=== PATIENT | female | born 1995 | race African-American/Black ===

== ENCOUNTER 2021-08-28 09:29 | Inpatient (IN) | payer SELFPAY ==
[2021-08-28] MEDS ORDERED: NA CHLORIDE 0.9% 1,000 ML ONE (12:19)
[2021-08-28 13:11] LABS: Absolute Lymphocytes (CBC) 1.6 K/uL (0.7-4.9); Basophils % 1.2 % (0-1.3); Hematocrit 24.8 % (36.0-45.0); Lymphocytes % 50.3 % (15.3-44.8); MPV 11.2 fL (7.6-11.3); RBC Red Blood Cell Count 3.46 M/uL (3.86-4.86)
[2021-08-28 13:21] LABS: Protime INR 1.07
--- NOTE | 2021-08-28 13:22 | RAD REPORT ---
EXAM DESCRIPTION: US - Pelvis Complete - 08/28/2021 1:08 pm CLINICAL HISTORY: heavy menses Pelvic pain. COMPARISON: No comparisons FINDINGS: The uterus is normal in size, shape and echotexture. The uterus measures 8.4 x 4.6 x 3.3 c m. The endometrial stripe measures 10 mm, normal. Both ovaries are normal in size, shape and echotexture. The right ovary measures 2.1 x 2.0 x 1.7 cm. The left ovary measures 2.9 x 2.2 x 2.1 cm. No ovarian or parovarian lesions. No adnexal masses. Normal Doppler blood flow was demonstrated to both ovaries. No significant pelvic ascites. IMPRESSION: Unremarkable study.
[2021-08-28 13:31] LABS: ALT/SGPT 12 U/L (12-78); AST/SGOT 16 U/L (15-37); Alkaline Phosphatase 94 U/L (45-117); BUN Blood Urea Nitrogen 7 mg/dL (7-18); Bicarbonate 23 mmol/L (21-32); Bilirubin Total 0.3 mg/dL (0.2-1.0); Glucose Level 101 mg/dL (74-106); Potassium 3.9 mmol/L (3.5-5.1); Protein, Total 8.2 g/dL (6.4-8.2); Sodium Level 139 mmol/L (136-145)
[2021-08-28 13:39] LABS: Platelet Estimate DECR; White Blood Cell Scan OK (OK)
[2021-08-28 13:40] LABS: Blood Morphology Comment NOT SEEN (NOT SEEN)
--- NOTE | 2021-08-28 14:00 | ER ---
Nurse's Notes [facility] Name: Dominguez Olivarez Age: 25 yrs Sex: Female : 1995 Arrival Date: 08/28/2021 Time: 09:31 Bed 7 Private MD: Diagnosis: Anemia, unspecified;Thrombocytopenia;Leukopenia Presentation: 08/28 09:52 Chief complaint: Patient states: pt states that she has been on her menstrual cycle x jh6 10 days. states she has an autoimmune deficiency and that she is wanting her h\\T\\h drawn. Coronavirus screen: Vaccine status: Patient reports being unvaccinated. Ebola Screen: Patient denies travel to an Ebola-affected area in the 21 days before illness onset. Initial Sepsis Screen: Does the patient meet any 2 criteria? No. Patient's initial sepsis screen is negative. Does the patient have a suspected source of infection? No. Patient's initial sepsis screen is negative. Risk Assessment: Do you want to hurt yourself or someone else? Patient reports no desire to harm self or others. Onset of symptoms was August 21, 2021. 09:52 Method Of Arrival: Ambulatory [facility] 09:52 Acuity: PORTER 3 jh6 Triage Assessment: 09:55 General: Appears in no apparent distress. Behavior is calm, cooperative. Pain: Pain [facility] currently is 8 out of 10 on a pain scale. Quality of pain is described as aching, sharp, Is chronic. 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 - Social history:: Smoking status: Patient denies any tobacco usage or history of. Screenin:54 Abuse screen: Denies threats or abuse. Nutritional screening: No deficits noted. jl7 Tuberculosis screening: No symptoms or risk factors identified. Fall Risk IV access (20 points). Mental Status- Oriented to own ability (0 pts). Total Simmons Fall Scale indicates No Risk (0-24 pts). Assessment: 11:51 General: Appears in no apparent distress. comfortable, well groomed, well developed, ww well nourished, Behavior is calm, cooperative, appropriate for age, Reports fatigue for >3 days. Pain: Complains of pain in right hand, left hand, right leg and left leg Quality of pain is described as aching. Neuro: No deficits noted. Level of Consciousness is awake, alert, obeys commands, Oriented to person, place, time, situation, Appropriate for age Gait is steady, Speech is normal. Cardiovascular: No deficits noted. Reports fatigue, Denies chest pain, shortness of breath. Respiratory: No deficits noted. Airway is patent Respiratory effort is even, unlabored, Respiratory pattern is regular, symmetrical. GI: Patient currently denies bloody stool, diarrhea. Derm: No deficits noted. No signs and/or symptoms reported regarding the dermatologic system. Skin is intact, is healthy with good turgor, Skin is dry, Skin is pale. Musculoskeletal: No deficits noted. Reports pain in right hand, left hand, right leg and left leg. 14:19 Reassessment: Patient appears in no apparent distress at this time. Patient and/or family updated on plan of care and expected duration. Pain level reassessed. Patient is alert, oriented x 3, equal unlabored respirations, skin warm/dry/pink. 16:51 Reassessment: Patient appears in no apparent distress at this time. No changes from [facility] previously documented assessment. Patient and/or family updated on plan of care and expected duration. Pain level reassessed. Patient is alert, oriented x 3, equal unlabored respirations, skin warm/dry/pink. Vital Signs: 09:52 BP 124 / 66; Pulse 75; Resp 17; Temp 97.6(O); Pulse Ox 100% on R/A; Weight 59.87 kg; 6 Height 5 ft. 5 in. (165.10 cm); Pain 8/10; 12:00 BP 100 / 71; Pulse 71; Resp 18; Pulse Ox 99% on R/A; ww 14:19 BP 107 / 68; Pulse 61; Resp 18; Pulse Ox 100% on R/A; ww 15:00 BP 149 / 75; Pulse 79; Resp 22; Pulse Ox 98% on R/A; jl7 16:30 BP 160 / 78; Pulse 82; Resp 22; Pulse Ox 98% on R/A; jl7 09:52 Body Mass Index 21.97 (59.87 kg, 165.10 cm) jh6 [place] Coma Score: 12:00 Eye Response: spontaneous(4). Verbal Response: oriented(5). Motor Response: obeys ww commands(6). Total: 15. 14:19 Eye Response: spontaneous(4). Verbal Response: oriented(5). Motor Response: obeys ww commands(6). Total: 15. ED Course: 09:31 Patient arrived in ED. mr 09:55 Triage completed. [facility] 09:55 Arm band placed on right wrist. [facility] 11:43 Rosa Busby, RN is Primary Nurse. ww 11:43 Jim Warner PA is PHCP. [facility] 11:43 Nicho Li MD is Attending Physician. m 11:53 Patient has correct armband on for positive identification. Bed in low position. Call ww light in reach. Side rails up X 1. Adult w/ patient. 12:46 CBC with Diff Sent. ww 12:46 Ptt, Activated Sent. ww 12:46 Protime (+inr) Sent. ww 12:46 CMP Sent. ww 12:46 Type And Screen Sent. ww 12:46 Inserted saline lock: 20 gauge in right antecubital area, using aseptic technique. ww Missed attempt(s): 20 gauge in left antecubital area. 12:47 Initial lab(s) drawn, by me, sent to lab. ww 13:08 US Pelvis Complete In Process Unspecified. EDMS 13:58 Ciaran Matson MD is Hospitalizing Provider. m 14:15 SARS-COV-2 RT PCR (Document "Date of Onset" if Symptomatic) Sent. ww 16:54 No provider procedures requiring assistance completed. Patient admitted, IV remains in jl7 place. intact, No redness/swelling at site. Administered Medications: 12:46 Drug: NS 0.9% 1000 ml Route: IV; Rate: 1 bolus; Site: right antecubital; ww 13:59 Follow up: IV Status: Completed infusion; IV Intake: 1000ml ww Intake: 13:59 IV: 1000ml; Total: 1000ml. Outcome: 13:59 Decision to Hospitalize by Provider. jmm 16:54 Admitted to Med/surg accompanied by tech, via wheelchair. 7 16:55 Condition: stable [facility] 17:27 Patient left the ED. ss Signatures: Dispatcher [employer] EDMS Jim Warner PA PA jmm Shahid, Melba mr Nathalia Mtz, RN RN ss Zoraida Ritchie, RN RN jl7 Shaila Verde, RN RN jh6 Rosa Busby, RN RN ww
--- NOTE | 2021-08-28 14:00 | EDPHYS ---
Physician Documentation [facility] Name: Dominguez Olivarez Age: 25 yrs Sex: Female : 1995 Arrival Date: 08/28/2021 Time: 09:31 Bed 7 Private MD: ED Physician Nicho Li HPI: 08/28 10:09 This 25 yrs old Black Female presents to ER via Ambulatory with complaints of Blood not jmm clotting. 10:09 The patient presents with vaginal bleeding that is. Onset: The symptoms/episode jmm began/occurred gradually, 1.1 week(s) ago. Modifying factors: The symptoms are alleviated by nothing, the symptoms are aggravated by nothing. 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 Also complains of intermittent episodes of petechiae.. 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 - Social history:: Smoking status: Patient denies any tobacco usage or history of. ROS: 10:09 Constitutional: Negative for fever, chills, and weight loss, Cardiovascular: Negative jmm for chest pain, palpitations, and edema, Respiratory: Negative for shortness of breath, cough, wheezing, and pleuritic chest pain. 10:09 : Positive for vaginal bleeding. 10:09 All other systems are negative. Exam: 10:09 Constitutional: This is a well developed, well nourished patient who is awake, alert, jmm and in no acute distress. Head/Face: atraumatic. Eyes: EOMI, no conjunctival erythema appreciated ENT: Moist Mucus Membranes Neck: Trachea midline, Supple Chest/axilla: Normal chest wall appearance and motion. Cardiovascular: Regular rate and rhythm. No edema appreciated Respiratory: Normal respirations, no respiratory distress appreciated Abdomen/GI: Non distended, soft Back: Normal ROM Skin: General appearance color normal MS/ Extremity: Moves all extremities, no obvious deformities appreciated, no edema noted to the lower extremities Neuro: Awake and alert, normal gait Psych: Behavior is normal, Mood is normal, Patient is cooperative and pleasant Vital Signs: 09:52 BP 124 / 66; Pulse 75; Resp 17; Temp 97.6(O); Pulse Ox 100% on R/A; Weight 59.87 kg; 6 Height 5 ft. 5 in. (165.10 cm); Pain 8/10; 12:00 BP 100 / 71; Pulse 71; Resp 18; Pulse Ox 99% on R/A; ww 14:19 BP 107 / 68; Pulse 61; Resp 18; Pulse Ox 100% on R/A; ww 15:00 BP 149 / 75; Pulse 79; Resp 22; Pulse Ox 98% on R/A; jl7 16:30 BP 160 / 78; Pulse 82; Resp 22; Pulse Ox 98% on R/A; jl7 09:52 Body Mass Index 21.97 (59.87 kg, 165.10 cm) jh6 [place] Coma Score: 12:00 Eye Response: spontaneous(4). Verbal Response: oriented(5). Motor Response: obeys ww commands(6). Total: 15. 14:19 Eye Response: spontaneous(4). Verbal Response: oriented(5). Motor Response: obeys ww commands(6). Total: 15. MDM: 12:09 Patient medically screened. [facility] 13:57 Data reviewed: vital signs, nurses notes. Counseling: I had a detailed discussion with darrius the patient and/or guardian regarding: the historical points, exam findings, and any diagnostic results supporting the discharge/admit diagnosis, lab results, the need for further work-up and treatment in the hospital. ED course: I discussed the patient with Dr. Persaud whom recommended admission with repeat cbc in am. . 08/28 10:08 Order name: CBC with Diff; Complete Time: 13:43 rn 08/28 10:08 Order name: Protime (+inr); Complete Time: 13:25 rn 08/28 10:08 Order name: Ptt, Activated; Complete Time: 13:25 rn 08/28 12:10 Order name: CMP; Complete Time: 13:32 [facility] 08/28 12:10 Order name: Type And Screen [facility] 08/28 13:40 Order name: CBC Smear Scan; Complete Time: 13:43 EDN[facility] 08/28 13:57 Order name: SARS-COV-2 RT PCR (Document "Date of Onset" if Symptomatic) [facility] 08/28 13:58 Order name: SARS-COV-2 RT PCR; Complete Time: 15:06 [facility] 08/28 14:00 Order name: CBC with Diff: draw at 1600; Complete Time: 17:41 [facility] 08/28 14:01 Order name: ABO/RH no charge; Complete Time: 14:11 [facility] 08/28 14:14 Order name: Urine Dipstick-Ancillary; Complete Time: 14:23 [facility] 08/28 14:30 Order name: Urine --Ancillary (enter results); Complete Time: 15:06 08/28 15:48 Order name: Comprehensive Metabolic Panel [facility] 08/28 15:48 Order name: Comprehensive Metabolic Panel [facility] 08/28 12:10 Order name: US Pelvis Complete; Complete Time: 13:25 [facility] 08/28 13:42 Order name: Urine Dipstick-Ancillary (obtain specimen); Complete Time: 14:12 [facility] 08/28 13:42 Order name: Urine Test (obtain specimen); Complete Time: 14:12 [facility] 08/28 15:48 Order name: CONS Physician Consult [facility] 08/28 15:48 Order name: Heart Healthy [facility] 08/28 15:48 Order name: CBC with Automated Diff [facility] 08/28 15:48 Order name: CBC with Automated Diff [facility] Administered Medications: 12:46 Drug: NS 0.9% 1000 ml Route: IV; Rate: 1 bolus; Site: right antecubital; ww 13:59 Follow up: IV Status: Completed infusion; IV Intake: 1000ml ww Disposition: 17:39 Co-signature as Attending Physician, Nicho Li MD I agree with the assessment and rn plan of care. Attestation: The patient's history, exam findings, diagnostics, and a summary of any interventions or procedures was reviewed in detail with Jim VASQUES. Disposition Summary: 08/28/21 13:59 Hospitalization Ordered Hospitalization Status: Observation jm Provider: Ciaran Matson Location: Telemetry/MedSurg (observation) jmm Condition: Stable jmm Problem: new jmm Symptoms: are unchanged jmm Bed/Room Type: Standard [facility] Room Assignment: 215(08/28/21 16:17) bd Diagnosis - Anemia, unspecified jmm - Thrombocytopenia jmm - Leukopenia jmm Forms: - Medication Reconciliation Form jmm - SBAR form jmm Signatures: Dispatcher [employer] EDRosalva Stewart Joel, PA PA jmm Nieto, Roman, MD MD rn Hastedt, Jennifer, RN RN jh6 Rosa Busby RN RN ww Corrections: (The following items were deleted from the chart) 16:17 13:59 darrius magana
[2021-08-28 14:14] LABS: Urine Blood 3+ (Negative); Urine Glucose Negative (Negative); Urine Protein Negative (Negative)
[2021-08-28] MEDS ORDERED: ACETAMINOPHEN 500 MG TAB PO PRN (15:46)
[2021-08-28] MEDS ORDERED: MORPHINE 2 MG/ML SYR IV PRN (15:46)
[2021-08-28] MEDS ORDERED: ONDANSETRON 4 MG/2 ML VIAL IV PRN (15:46)
[2021-08-28 17:19] LABS: Absolute Lymphocytes (CBC) 1.6 K/uL (0.7-4.9); Basophils % 0.7 % (0-1.3); Hematocrit 24.5 % (36.0-45.0); Lymphocytes % 49.3 % (15.3-44.8); MPV 11.8 fL (7.6-11.3); RBC Red Blood Cell Count 3.41 M/uL (3.86-4.86)
[2021-08-28] MEDS ORDERED: MEDROXYPROGEST ACET 150 MG/ML IM SCH (21:00)
[2021-08-28] MEDS ORDERED: NA CHLORIDE 0.9% 500 ML ONE (21:39)
[2021-08-28 23:02] VITALS: BMI 21.9
[2021-08-28 23:10] LABS: C-Reactive Protein 8.7 mg/L (<3.00); Ferritin 10.5 ng/mL (8-388); Folic Acid, (Folate) 15.1 ng/mL (3.1-17.5)
[2021-08-29] MEDS: NA CHLORIDE 0.9% 1,000 ML IV SCH ×2 (02:37→05:05)
[2021-08-29] MEDS ORDERED: DIPHENHYDRAMINE 50 MG/ML VIAL IV ONE (03:05)
[2021-08-29] MEDS ORDERED: DIPHENHYDRAMINE 50 MG/ML VIAL ONE (03:10)
[2021-08-29 03:58] LABS: RBC Red Blood Cell Count 3.64 M/uL (3.86-4.86)
[2021-08-29 03:59] LABS: Basophils % 0.5 % (0-1.3); Lymphocytes % 45.5 % (15.3-44.8); MPV 8.7 fL (7.6-11.3); RBC Red Blood Cell Count 3.73 M/uL (3.86-4.86)
[2021-08-29 04:24] LABS: ALT/SGPT 11 U/L (12-78); AST/SGOT 19 U/L (15-37); Albumin 3.3 g/dL (3.4-5.0); Alkaline Phosphatase 98 U/L (45-117); BUN Blood Urea Nitrogen 3 mg/dL (7-18); Bicarbonate 19 mmol/L (21-32); Bilirubin Total 0.7 mg/dL (0.2-1.0); Glucose Level 96 mg/dL (74-106); Potassium 3.7 mmol/L (3.5-5.1); Protein, Total 8.8 g/dL (6.4-8.2); Sodium Level 141 mmol/L (136-145)
[2021-08-29 08:08] LABS: Rheumatoid Factor NEG (NEG)
--- NOTE | 2021-08-29 11:13 | P.HP ---
Certification for Inpatient Patient admitted to: Inpatient With expected LOS: >2 Midnights Patient will require the following post-hospital care: None Practitioner: I am a practitioner with admitting privileges, knowledge of patient current condition, hospital course, and medical plan of care. Services: Services provided to patient in accordance with Admission requirements found in Title 42 Section 412.3 of the Code of Federal Regulations Patient History Date of Service: 08/28/21 Reason for admission: ITP/vaginal bleeding History of Present Illness: Patient is a 25-year-old female who comes into the hospital with vaginal bleeding. Patient has a history of ITP diagnosed about 5 years ago. She really does not like to take any medications for this as she states she only uses herbal or nutritional supplementation. She says watching her diet helps her keep her ITP controlled. Her last platelet count a few months ago was 130,000. [place] [address]. She is having some vaginal bleeding. At this time, there is no need to transfuse. Will monitor her counts and repeat shortly. If her counts dropped then we will transfuse platelets and blood. Spoke with gynecology and they recommended Depo-Provera shot if Hematology agreeable. Allergies No Known Allergies Allergy (Unverified 08/28/21 19:34) Home Medications: NK [No Home Meds] 08/28/21 - Past Medical/Surgical History Has patient received pneumonia vaccine in the past: No Diabetic: No -: Systemic lupus erythematous -: Scleroderma -: Polymyositis -: Raynaud's phenomena -: Mixed Connective tissue disorder -: 2019 hospitalized for transfusion blood and PLT - Family History Father Medical History: Cancer - Social History Smoking Status: Never smoker Alcohol use: No CD- Drugs: No Caffeine use: Yes Place of Residence: Home Review of Systems 10-point ROS is otherwise unremarkable Physical Examination - Vital Signs Temperature: 97.9 F Blood Pressure: 103/64 Pulse: 57 Respirations: 16 Pulse Ox (%): 98 - Physical Exam General: Alert, In no apparent distress, Oriented x3 HEENT: Atraumatic, PERRLA, Mucous membr. moist/pink, EOMI, Sclerae nonicteric Neck: Supple, 2+ carotid pulse no bruit, No LAD, Without JVD or thyroid abnormality Respiratory: Clear to auscultation bilaterally, Normal air movement Cardiovascular: Regular rate/rhythm, Normal S1 S2, No murmurs Gastrointestinal: Normal bowel sounds, Soft and benign, Non-distended, No tenderness Musculoskeletal: No clubbing, No swelling, No tenderness Integumentary: No rashes Neurological: Normal gait, Normal speech, Normal strength at 5/5 x4 extr, Normal tone, Normal affect Lymphatics: No axilla or inguinal lymphadenopathy - Studies Laboratory Data (last 24 hrs) 08/28/21 16:59: WBC 3.20 L, Hgb 7.6 L, Hct 24.5 L, Plt Count 10 L* D 08/28/21 13:00: Sodium 139, Potassium 3.9, BUN 7, Creatinine 0.60, Glucose 101, Total Bilirubin 0.3, AST 16, ALT 12, Alkaline Phosphatase 94 08/28/21 13:00: PT 12.3, INR 1.07, APTT 32.7 08/28/21 13:00: WBC 3.20 L, Hgb 7.6 L, Hct 24.8 L, Plt Count 14 L* Female Exam - Female Pelvic Vagina: Other (Bypassed-this was done in the emergency room with vaginal bleeding noted) Assessment & Plan - Problems (Diagnosis) (1) Chronic ITP (idiopathic thrombocytopenia) Current Visit: Yes Status: Acute (2) Menorrhagia Current Visit: Yes Status: Acute (3) Anemia Current Visit: Yes Status: Acute - Plan Plan: 1. Continue with gentle hydration 2. Monitor H&H and platelet count 3. Hematology consultation 4. Spoke with gynecology and they recommended Depo-Provera shot 5. Monitor Iron and B12 level 6. GI and DVT prophylaxis Discharge Plan: Home Plan to discharge in: Greater than 2 days - Advance Directives Does patient have a Living Will: No Does patient have a Durable POA for Healthcare: No - Code Status/Comfort Care Code Status Assessed: Yes Code Status: Full Code Critical Care: No Time Spent Managing PTS Care (In Minutes): 40
[2021-08-29 12:27] LABS: Basophils % 0.5 % (0-1.3); Hematocrit 27.5 % (36.0-45.0); Lymphocytes % 52.1 % (15.3-44.8); MPV 9.5 fL (7.6-11.3); RBC Red Blood Cell Count 3.79 M/uL (3.86-4.86)
[2021-08-29 12:34] VITALS: BP 108/66; TEMP 98
[2021-08-29 13:06] LABS: Blood Morphology Comment NOT SEEN (NOT SEEN); Platelet Estimate DECR
[2021-08-29] MEDS ORDERED: CYANOCOBALAMIN 1000MCG/ML INJ IM ONE (13:32)
[2021-08-29] MEDS ORDERED: SOD FERRIC GLUC COMPLX/SUCROSE 250 MG in NA CHLORIDE 0.9% 250 ML IV SCH (15:00)
[2021-08-29 19:58] VITALS: O2SAT 97
== END 2021-08-29 18:20 | disposition home or self-care (01) | DRG 809 ==
LOC: ER 09:29 → ERHOLD 15:46 → 2ND 17:04 → OBSVTOIN 21:07
PROVIDERS: ADMIT Hospitalist; ATTEND Hospitalist
PROC: 30233N1 Transfusion of Nonautologous Red Blood Cells into Peripheral Vein, Percutaneous Approach (ICD-10-PCS; principal; 2021-08-28)
PROC: 30233R1 Transfusion of Nonautologous Platelets into Peripheral Vein, Percutaneous Approach (ICD-10-PCS; 2021-08-28)
DX: D61.818 Other pancytopenia (principal); D69.3 Immune thrombocytopenic purpura; N92.0 Excessive and frequent menstruation with regular cycle; D64.9 Anemia, unspecified; D69.6 Thrombocytopenia, unspecified; D72.819 Decreased white blood cell count, unspecified; Z20.822 Contact with and (suspected) exposure to COVID-19
CPT/HCPCS: 36415; 76856; 80053; 81003; 81025; 82607; 82728; 82746; 83540; 84165; 84466; 85025; 85044; 85610; 85652; 85730; 86038; 86140; 86225; 86334; 86430; 86850; 86900; 86901; 87389; 96360; 99285; G0378; J1050; J1200; J2916; J3420; J7030; J7040; J7050; P9016; P9035; P9100; U0003